=== PATIENT | male | born 1970 | race Caucasian/White ===

== ENCOUNTER → 2017-04-25 | Day surgery (SDC) | payer OTHER ==
[~2017-04-25] VITALS: Ht 182.9 cm; Wt 82.1 kg
[~2017-04-25] MED LIST: FISH OIL 1,0001 EAC5 PO; LORAZEPAM0.5 M1 PO; MULTIVITAMINS1 EAC9 PO; VITAMIN B COMP1 EACH PO
--- NOTE | 2017-04-27 18:56 | Operative Report ---
Operative/Inv Procedure Report Surgery Date: 04/25/17 Name of Procedure: Resection of large lobulated fatty mass from left upper lateral chest wall, subfascial over 20 cm. Pre-Operative Diagnosis: Large fatty mass left anterolateral chest wall Post-Operative Diagnosis: Same Estimated Blood Loss: scant Surgeon/Radiology Services Manager: Mario PICKETT,César VALERIO Anesthesia: general endotracheal tube Operative/Procedure Note Note: Patient positioned supine with the left arm slightly abducted the area was clipped prepped and draped in usual sterile fashion the mass was visible based on preoperative imaging and palpation we aimed a slightly curved transverse incision initially about 5 cm, during the procedure we ended up enlarging it to 9 cm, this mass was large lobulated and subfascial bounded deep by muscles of the chest wall, latissimus dorsi, teres major, serratus anterior, pectoralis major and minor. The Deepest Extent Tapered down to a Centimeter or 2 Inferior to the Humeral Head, Also Abutting Inferior Aspect of the Axillary Vessels and Brachial Plexus. Initially after Injecting Local Anesthetic and Making the Incision Coming through the Thin Subcutaneous Layer We Got a Sense of This Encapsulated Mass Had 2 Major Lobules Almost Separate He Had to Untwist Them and Care Was Taken to Avoid Injury to Surrounding Nerves and Vessels but Also to Keep the Mass Intact in One Piece without Breaking through the Capsule, Only at Its Deepest Extent in the Interest of Avoiding Injury to the Structures around the Humeral Head and the Main Nerves and Vessels Did Very a Potato with Tapering Fat Using Hemostats and 3-0 Vicryl Ties. The Mass Measured over 20 Cm. The Resulting Cavity Was Checked for Hemostasis and Then a Size 10 Round [place] Drain Was Placed in This Cavity Secured through a Separate Stab Incision Nylon Suture the Incision Was Closed in Layers Using Interrupted 3-0 Vicryl Sutures Deep and a Running 4-0 Monocryl Suture for the Skin Itself, Followed by Mastisol Steri-Strips Telfa and Tegaderm and Then Gauze and Tape. EBL minimal lap and sponge counts correct wound expectancy clean IV fluids crystalloid complications none patient tolerated the procedure well was extubated and returned to recovery room in satisfactory condition.
== END ==
LOC: STS 04-21 08:20
DX: D21.6 Benign neoplasm of connective and other soft tissue of trunk, unspecified (principal); Z87.891 Personal history of nicotine dependence
CPT/HCPCS: 88305; C9399; J0131; J0690; J2250